=== PATIENT | female | born 1945 | race Caucasian/White ===

== ENCOUNTER 2020-01-28 19:57 | Inpatient (IN) ==
[2020-01-28] MEDS ORDERED: Aspirin 81 MG TAB.CHEW PO ONE (20:04)
[2020-01-28 20:34] LABS: Basophils % 0.3 %; Eosinophils # 0.1 K/mcL (0.0-0.6); Eosinophils % 0.6 %; Hematocrit 39.3 % (35.3-44.9); Hemoglobin 13.1 g/dL (11.5-15.4); Immature Granulocytes % 0.4 % (0-4); Lymphocytes # 1.1 K/mcL (0.6-4.6); Lymphocytes % 9.4 %; Mean Corpuscular HGB Conc 33.3 g/dL (31.6-35.5); Mean Corpuscular Hemoglobin 31.4 pg (28.0-33.3); Mean Corpuscular Volume 94.2 fL (83.0-100.0); Mean Platelet Volume 9.5 fL (9.4-12.4); Monocytes % 8.6 %; Neutrophils # 9.3 K/mcL (1.6-8.9); Platelet Count 281 K/mcL (140-400); Red Blood Count 4.17 M/mcL (3.82-4.97); Red Cell Distribution Width 13.2 % (11.5-14.5); Segmented Neutrophils % 80.7 %; White Blood Count 11.5 K/mcL (4.3-11.1)
[2020-01-28 20:36] LABS: Prothrombin Time 11.2 Seconds (9.4-12.1)
[2020-01-28 20:39] LABS: Activated Partial Thrombo Time 66.9 Seconds (26.0-36.0)
[2020-01-28 20:52] LABS: BUN/Creatinine Ratio 15 (6-26); Blood Urea Nitrogen 11 mg/dL (8-23); Carbon Dioxide 30 mEq/L (23-29); Chloride 98 mEq/L (98-107); Glucose 116 mg/dL (70-105); Osmolality,Calculated 280 (280-300); Potassium 3.3 mEq/L (3.5-5.1); Sodium 135 mEq/L (136-145); eGFR For African Americans > 60 (> 60); eGFR For Non-African Americans > 60 (> 60)
[2020-01-28 20:53] LABS: Troponin I < 0.03 ng/mL (< 0.04)
[2020-01-28] MEDS ORDERED: Isovue-370 500 ML BOTTLE IVP ONE (21:04)
[2020-01-28] MEDS ORDERED: *HR* Metoprolol 5 MG/5 ML VIAL IVP STA (21:16)
[2020-01-29] MEDS ORDERED: Ondansetron 4 MG/2 ML VIAL IVP PRN (00:47)
[2020-01-29] MEDS ORDERED: Naloxone 0.4 MG/ML INJ IVP PRN (00:47)
[2020-01-29] MEDS ORDERED: Perflutren Lipid Microsphere 1.3 ML in 0.9 % Sodium Chloride 8.7 ML IVP PRN (00:50)
[2020-01-29 02:01] LABS: Basophils % 0.3 %; Eosinophils # 0.1 K/mcL (0.0-0.6); Eosinophils % 1.1 %; Hematocrit 35.5 % (35.3-44.9); Hemoglobin 11.7 g/dL (11.5-15.4); Immature Granulocytes % 0.3 % (0-4); Lymphocytes # 1.3 K/mcL (0.6-4.6); Lymphocytes % 17.5 %; Mean Corpuscular Hemoglobin 30.4 pg (28.0-33.3); Mean Corpuscular Volume 92.2 fL (83.0-100.0); Mean Platelet Volume 9.8 fL (9.4-12.4); Monocytes # 0.7 K/mcL (0.0-1.3); Monocytes % 9.4 %; Neutrophils # 5.1 K/mcL (1.6-8.9); Platelet Count 261 K/mcL (140-400); Red Blood Count 3.85 M/mcL (3.82-4.97); Red Cell Distribution Width 13.2 % (11.5-14.5); Segmented Neutrophils % 71.4 %; White Blood Count 7.1 K/mcL (4.3-11.1)
[2020-01-29 02:07] LABS: Prothrombin Time 11.9 Seconds (9.4-12.1)
[2020-01-29 02:20] LABS: Alanine Aminotransferase 13 Units/L (7-52); Albumin/Globulin Ratio 1.8 (1.1-2.2); Alkaline Phosphatase 44 Units/L (34-104); Aspartate Amino Transferase 15 Units/L (13-39); BUN/Creatinine Ratio 14 (6-26); Bilirubin,Total 0.6 mg/dL (0.3-1.0); Blood Urea Nitrogen 9 mg/dL (8-23); Carbon Dioxide 27 mEq/L (23-29); Chloride 103 mEq/L (98-107); Chol/HDL Ratio 2.5 (0-4.9); Cholesterol 183 mg/dL (< 200); Globulin 2.2 g/dL (2.4-3.5); Glucose 106 mg/dL (70-105); HDL Cholesterol 73 mg/dL (40-59); LDL Cholesterol,Calculated 99 mg/dL (< 100); Magnesium 2.1 mg/dL (1.6-2.6); Osmolality,Calculated 283 (280-300); Potassium 3.7 mEq/L (3.5-5.1); Sodium 137 mEq/L (136-145); Total Protein 6.2 g/dL (6.4-8.9); Triglycerides 56 mg/dL (< 150); eGFR For African Americans > 60 (> 60); eGFR For Non-African Americans > 60 (> 60)
[2020-01-29] MEDS: Pantoprazole 40 MG VIAL IVP SCH (05:30)
[2020-01-29] MEDS: *HR* Enoxaparin 40 MG/0.4 ML SYRINGE SQ SCH (05:31)
[2020-01-29] MEDS: hydroCHLOROthiazide 25 MG TABLET PO SCH (10:00)
[2020-01-29 10:51] LABS: Adenovirus Not Detected (Not Detect); Coronavirus 229E Not Detected (Not Detect); Coronavirus HKU1 Not Detected (Not Detect); Coronavirus NL63 Not Detected (Not Detect); Coronavirus OC43 Not Detected (Not Detect); Human Metapneumovirus Not Detected (Not Detect); Human Rhinovirus/Enterovirus Not Detected (Not Detect); Influenza A Subtype 2009 H1 Not Detected (Not Detect); Influenza B Not Detected (Not Detect); Parainfluenza Virus 1 Not Detected (Not Detect); Parainfluenza Virus 2 Not Detected (Not Detect); Parainfluenza Virus 3 Not Detected (Not Detect); SARS-CoV-2 Not Detected (Not Detect)
[2020-01-29 10:52] LABS: Bordetella Pertussis Not Detected (Not Detect); Chlamydophila pneumoniae Not Detected (Not Detect); Mycoplasma pneumoniae Not Detected (Not Detect); Parainfluenza Virus 4 Not Detected (Not Detect); Respiratory Syncytial Virus Not Detected (Not Detect)
[2020-01-29] MEDS ORDERED: Lidocaine -MPF 2% 2 ML VIAL ONE (11:00)
[2020-01-29] MEDS ORDERED: *HR* Propofol 200 MG/20 ML VIAL IVP ONE (11:00)
[2020-01-29] MEDS ORDERED: Acetaminophen 325 MG TABLET PO PRN (13:32)
[2020-01-30 02:40] LABS: Basophils % 0.4 %; Eosinophils # 0.1 K/mcL (0.0-0.6); Eosinophils % 1.1 %; Hematocrit 34.4 % (35.3-44.9); Hemoglobin 11.3 g/dL (11.5-15.4); Immature Granulocytes % 0.2 % (0-4); Lymphocytes # 1.5 K/mcL (0.6-4.6); Lymphocytes % 19.1 %; Mean Corpuscular HGB Conc 32.8 g/dL (31.6-35.5); Mean Corpuscular Hemoglobin 30.9 pg (28.0-33.3); Mean Platelet Volume 9.6 fL (9.4-12.4); Monocytes # 0.9 K/mcL (0.0-1.3); Monocytes % 10.9 %; Neutrophils # 5.5 K/mcL (1.6-8.9); Platelet Count 247 K/mcL (140-400); Red Blood Count 3.66 M/mcL (3.82-4.97); Red Cell Distribution Width 13.2 % (11.5-14.5); Segmented Neutrophils % 68.3 %; White Blood Count 8.1 K/mcL (4.3-11.1)
[2020-01-30 02:57] LABS: BUN/Creatinine Ratio 24 (6-26); Blood Urea Nitrogen 20 mg/dL (8-23); Calcium 9.3 mg/dL (8.6-10.3); Carbon Dioxide 29 mEq/L (23-29); Chloride 98 mEq/L (98-107); Glucose 98 mg/dL (70-105); Osmolality,Calculated 283 (280-300); Potassium 3.4 mEq/L (3.5-5.1); Sodium 135 mEq/L (136-145); eGFR For African Americans > 60 (> 60); eGFR For Non-African Americans > 60 (> 60)
[2020-01-30] MEDS: Pantoprazole 40 MG VIAL IVP SCH (06:05)
[2020-01-30] MEDS: *HR* Enoxaparin 40 MG/0.4 ML SYRINGE SQ SCH (06:05)
[2020-01-30 07:40] VITALS: BP 128/75
[2020-01-30] MEDS: hydroCHLOROthiazide 25 MG TABLET PO SCH (07:57)
== END 2020-01-30 10:15 | disposition home or self-care (01) | DRG 392 ==
LOC: 3BNU 19:57 → EMEROOARM 19:57 → 3BNU 01-29 00:18 → SUATTDRO 01-29 14:29
PROVIDERS: ADMIT Family Medicine; ATTEND Internal Medicine
PROC: ENDOEBX (2020-01-29 11:00)